=== PATIENT | male | born 1990 | race Caucasian/White ===

== ENCOUNTER 2017-04-08 21:32 | Emergency (ER) | payer SELFPAY ==
[2017-04-08 22:29] VITALS: BP 146/90
== END 2017-04-09 04:00 | disposition left against medical advice (07) ==
LOC: ED 21:32
DX: T78.40XA Allergy, unspecified, initial encounter (principal); Z53.21 Procedure and treatment not carried out due to patient leaving prior to being seen by health care provider; Y92.9 Unspecified place or not applicable